=== PATIENT | female | born 1980 | race Caucasian/White ===

== ENCOUNTER 2019-05-14 10:36 | Inpatient (IN) | payer OTHER ==
[2019-05-14] MEDS: LACTATED RINGER'S 1,000 ML IV (12:29)
[2019-05-14] MEDS: TERBUTALINE 1 MG/ML INJ SC ×2 (12:30→14:57)
[2019-05-14 12:52] LABS: ADD MAN DIFF? NO
[2019-05-14 14:13] LABS: ADD UMIC YES; UR ASCORBIC ACID NEGATIVE (NEGATIVE); UR BACTERIA FEW /HPF (NONE SEEN); UR BILIRUBIN (Dip) NEGATIVE (NEGATIVE); UR BLOOD (Dip) NEGATIVE (NEGATIVE); UR CLARITY SLIGHTLY CLOUDY (CLEAR); UR COLOR STRAW (YELLOW); UR GLUCOSE (Dip) NEGATIVE (NEGATIVE); UR KETONES (Dip) TRACE mg/dL (NEGATIVE); UR LEUKOCYTE ESTERASE (Dip) 2+ Leu/ul (NEGATIVE); UR NITRITE (Dip) NEGATIVE (NEGATIVE); UR RBC 1 /HPF (0-5); UR SPECIFIC GRAVITY (Dip) 1.002 (1.003-1.030); UR SQUAMOUS EPITHELIAL CELL FEW /HPF (FEW); UR TOTAL PROTEIN (Dip) NEGATIVE (NEGATIVE); UR UROBILINOGEN (Dip) NEGATIVE (NEGATIVE); UR WBC 23 /HPF (0-5)
[2019-05-14 14:16] LABS: WHITE BLOOD COUNT 9.5 10^3/ul (4.8-10.8)
[2019-05-14 14:16] LABS: BASOPHILS % 0.4 % (0.0-2.0); EOSINOPHILS % 0.2 % (0.0-7.0); HEMATOCRIT 37.5 % (37.0-47.0); HEMOGLOBIN 12.9 g/dl (12.0-16.0); LYMPHOCYTES # 1.8 10^3/ul (0.8-2.9); LYMPHOCYTES % 18.7 % (15.0-51.0); MEAN CORPUSCULAR HEMOGLOBIN 30.5 pg (29.0-33.0); MEAN CORPUSCULAR HGB CONC 34.4 g/dl (32.0-37.0); MEAN CORPUSCULAR VOLUME 88.7 fl (82.0-101.0); MEAN PLATELET VOLUME 10.4 fl (7.4-10.4); MONOCYTE # 0.7 10^3/ul (0.3-0.9); MONOCYTES % 7.1 % (0.0-11.0); NEUTROPHIL # 6.9 10^3/ul (1.6-7.5); NEUTROPHILS % 72.9 % (39.0-77.0); PLATELET COUNT 208 10^3/UL (140-415); RED BLOOD COUNT 4.23 10^6/ul (4.20-5.40); RED CELL DISTRIBUTION WIDTH 13.5 % (11.5-14.5)
[2019-05-14] MEDS ORDERED: MAGNESIUM SULFATE 4 GM/100 ML 100 ML (15:51)
[2019-05-14] MEDS: MAGNESIUM SULFATE 4 GM/100 ML 100 ML IV (16:15)
[2019-05-14] MEDS: BETAMET NA PHOS/AC(6 MG/ML) 2 ML INJ SYG IM (16:36)
[2019-05-14] MEDS: MAGNESIUM SULFATE 20 GM/500 ML 500 ML IV (17:26)
[2019-05-14] MEDS: CEFTRIAXONE 1 GM/50 ML (PMX) 50 ML IVPB (17:31)
[2019-05-14] MEDS ORDERED: SOD CHLORIDE 0.9% 1,000 ML IV (17:47)
[2019-05-14 18:21] LABS: MAGNESIUM 3.5 mg/dl (1.7-2.5)
[2019-05-14] MEDS: AMOXICILLIN/CLAV 500 MG TAB PO (23:44)
[2019-05-15 01:00] LABS: MAGNESIUM 5.3 mg/dl (1.7-2.5)
[2019-05-15] MEDS: MAGNESIUM SULFATE 20 GM/500 ML 500 ML IV ×2 (03:44→13:33)
[2019-05-15] MEDS: LACTATED RINGER'S 1,000 ML IV (04:35)
[2019-05-15] MEDS: AMOXICILLIN/CLAV 500 MG TAB PO ×2 (06:46→14:24)
[2019-05-15 07:20] LABS: MAGNESIUM 5.8 mg/dl (1.7-2.5)
[2019-05-15] MEDS ORDERED: ONDANSETRON 4 MG INJ (11:56)
[2019-05-15] MEDS ORDERED: ONDANSETRON 4 MG INJ IV (12:00)
[2019-05-15] MEDS: ONDANSETRON 4 MG INJ IV (12:07)
[2019-05-15 13:56] LABS: MAGNESIUM 6.3 mg/dl (1.7-2.5)
[2019-05-15] MEDS ORDERED: NIFEdipine 10 MG CAP (16:29)
[2019-05-15] MEDS: BETAMET NA PHOS/AC(6 MG/ML) 2 ML INJ SYG IM (16:38)
[2019-05-15] MEDS: NIFEdipine 10 MG CAP PO (16:49)
== END 2019-05-15 20:11 | disposition home or self-care (01) | DRG 833 ==
LOC: OBT 10:36 → L-D 10:37 → OBT 15:30 → L-D 15:30
DX: O60.03 Preterm labor without delivery, third trimester (principal); Z3A.34 34 weeks gestation of pregnancy; O24.419 Gestational diabetes mellitus in pregnancy, unspecified control
CPT/HCPCS: 36415; 76818; 81001; 83735; 85025; 87086; 96360; 96361; 96372

== ENCOUNTER 2019-06-11 19:31 | Inpatient (IN) | payer OTHER ==
[2019-06-11 20:17] LABS: ADD UMIC YES; UR ASCORBIC ACID NEGATIVE (NEGATIVE); UR BACTERIA FEW /HPF (NONE SEEN); UR BILIRUBIN (Dip) NEGATIVE (NEGATIVE); UR BLOOD (Dip) 3+ mg/dL (NEGATIVE); UR CLARITY SLIGHTLY CLOUDY (CLEAR); UR COLOR STRAW (YELLOW); UR GLUCOSE (Dip) 2+ mg/dL (NEGATIVE); UR KETONES (Dip) NEGATIVE (NEGATIVE); UR LEUKOCYTE ESTERASE (Dip) 2+ Leu/ul (NEGATIVE); UR NITRITE (Dip) NEGATIVE (NEGATIVE); UR RBC 3 /HPF (0-5); UR SPECIFIC GRAVITY (Dip) 1.003 (1.003-1.030); UR SQUAMOUS EPITHELIAL CELL FEW /HPF (FEW); UR TOTAL PROTEIN (Dip) NEGATIVE (NEGATIVE); UR UROBILINOGEN (Dip) NEGATIVE (NEGATIVE); UR WBC 16 /HPF (0-5)
[2019-06-11] MEDS ORDERED: LACTATED RINGER'S 1,000 ML IV (21:35)
[2019-06-11] MEDS ORDERED: MISOPROSTOL 200 MCG TAB PR (22:00)
[2019-06-11] MEDS ORDERED: METHYLERGONOVINE 0.2 MG INJ IM (22:00)
[2019-06-11] MEDS ORDERED: LIDOCAINE 1% (MPF) 30 ML INJ INJ (22:00)
[2019-06-11] MEDS ORDERED: OXYTOCIN 30 UNITS/LR 500 ML IV (22:00)
[2019-06-11] MEDS ORDERED: CARBOPROST 250 MCG INJ IM (22:00)
[2019-06-11] MEDS ORDERED: BUTORPHANOL 2 MG INJ IV (22:00)
[2019-06-11] MEDS: LACTATED RINGER'S 1,000 ML IV (22:03)
[2019-06-11] MEDS: AMPICILLIN 2 GM/NS (PMX) 100 ML IV (22:03)
[2019-06-11 22:18] LABS: ADD MAN DIFF? NO
[2019-06-11 22:19] LABS: BASOPHILS % 0.4 % (0.0-2.0); EOSINOPHILS % 0.5 % (0.0-7.0); HEMATOCRIT 36.8 % (37.0-47.0); HEMOGLOBIN 12.4 g/dl (12.0-16.0); LYMPHOCYTES # 2.1 10^3/ul (0.8-2.9); LYMPHOCYTES % 26.4 % (15.0-51.0); MEAN CORPUSCULAR HEMOGLOBIN 30.5 pg (29.0-33.0); MEAN CORPUSCULAR HGB CONC 33.7 g/dl (32.0-37.0); MEAN CORPUSCULAR VOLUME 90.6 fl (82.0-101.0); MEAN PLATELET VOLUME 9.7 fl (7.4-10.4); MONOCYTE # 0.7 10^3/ul (0.3-0.9); MONOCYTES % 8.1 % (0.0-11.0); NEUTROPHIL # 5.1 10^3/ul (1.6-7.5); NEUTROPHILS % 64.1 % (39.0-77.0); PLATELET COUNT 224 10^3/UL (140-415); RED BLOOD COUNT 4.06 10^6/ul (4.20-5.40); RED CELL DISTRIBUTION WIDTH 13.9 % (11.5-14.5)
[2019-06-11] MEDS ORDERED: MINERAL OIL LIGHT 10 ML VIAL TOP (22:30)
[2019-06-11 22:39] LABS: INR 0.87; PARTIAL THROMBOPLASTIN TIME 26.3 Sec (23.0-35.0); PROTIME 11.9 Sec (11.9-14.9); PT RATIO 0.9
[2019-06-11 23:10] LABS: HEPATITIS B SURFACE ANTIGEN NEGATIVE (NEGATIVE)
[2019-06-12] MEDS: LACTATED RINGER'S 1,000 ML IV ×2 (01:33→10:53)
[2019-06-12] MEDS: AMPICILLIN 1 GM/NS (PMX) 50 ML IV ×5 (02:02→18:23)
[2019-06-12] MEDS: OXYTOCIN 30 UNITS/LR 500 ML IV ×3 (14:24→19:28)
[2019-06-12] MEDS: BUTORPHANOL 2 MG INJ IV (17:50)
[2019-06-12 19:23] LABS: RAPID PLASMA REAGIN NONREACTIVE (NR)
[2019-06-12] MEDS: IBUPROFEN 600 MG TAB PO (19:23)
[2019-06-12] MEDS: KETOROLAC 30 MG INJ IV (19:57)
[2019-06-12] MEDS: ACETAMINOPHEN 500 MG TAB PO (19:58)
[2019-06-12] MEDS ORDERED: CARBOPROST 250 MCG INJ IM (22:30)
[2019-06-12] MEDS ORDERED: METHYLERGONOVINE 0.2 MG INJ IM (22:30)
[2019-06-12] MEDS: MAGNESIUM HYDROXIDE 30ML CUP PO (22:30)
[2019-06-12] MEDS ORDERED: MISOPROSTOL 200 MCG TAB PR (22:30)
[2019-06-12] MEDS ORDERED: HYDROCODONE/APAP (5/325) TAB PO ×2 (22:30)
[2019-06-12] MEDS ORDERED: ZOLPIDEM 5 MG TAB PO (22:30)
[2019-06-12] MEDS ORDERED: OXYTOCIN 30 UNITS/LR 500 ML IV (22:30)
[2019-06-12] MEDS ORDERED: DIBUCAINE 1% 30 GM OINT TOP (22:30)
[2019-06-12] MEDS: BENZOCAINE 20% 56 ML SPRAY TOP (23:59)
[2019-06-13] MEDS: LANOLIN HPA 1 PKT TOP
[2019-06-13] MEDS: WITCH HAZEL/GLYCERIN PAD PR
[2019-06-13] MEDS: LACTATED RINGER'S 1,000 ML IV* ×4 (00:01→22:19)
[2019-06-13] MEDS: IBUPROFEN 600 MG TAB PO ×5 (00:01→23:55)
[2019-06-13 05:40] LABS: ADD MAN DIFF? NO
[2019-06-13 06:46] LABS: WHITE BLOOD COUNT 10.7 10^3/ul (4.8-10.8)
[2019-06-13 06:46] LABS: BASOPHILS % 0.4 % (0.0-2.0); EOSINOPHILS % 0.3 % (0.0-7.0); HEMOGLOBIN 11.5 g/dl (12.0-16.0); LYMPHOCYTES % 18.9 % (15.0-51.0); MEAN CORPUSCULAR HGB CONC 32.9 g/dl (32.0-37.0); MEAN CORPUSCULAR VOLUME 91.4 fl (82.0-101.0); MEAN PLATELET VOLUME 10.2 fl (7.4-10.4); MONOCYTE # 0.9 10^3/ul (0.3-0.9); MONOCYTES % 8.7 % (0.0-11.0); NEUTROPHIL # 7.6 10^3/ul (1.6-7.5); NEUTROPHILS % 71.1 % (39.0-77.0); PLATELET COUNT 201 10^3/UL (140-415); RED BLOOD COUNT 3.83 10^6/ul (4.20-5.40); RED CELL DISTRIBUTION WIDTH 14.1 % (11.5-14.5)
[2019-06-13] MEDS: MAGNESIUM HYDROXIDE 30ML CUP PO ×2 (11:35→21:47)
[2019-06-13] MEDS: SENNA/DOCUSATE NA (8.6MG/50MG) TAB PO ×2 (11:36→21:47)
[2019-06-14] MEDS: IBUPROFEN 600 MG TAB PO ×2 (05:38→12:23)
[2019-06-14] MEDS: LACTATED RINGER'S 1,000 ML IV* (06:19)
[2019-06-14] MEDS: MEASLES,MUMPS,RUBELLA VACCINE INJ SC* (09:00)
[2019-06-14] MEDS: VARICELLA VACCINE LIVE/PF 1,350 UNIT/0.5 ML ML SC* (09:00)
[2019-06-14] MEDS: DIPHTH/TET/ACEL PERTUSS (ADULT) 0.5 ML VIAL IM* (09:00)
[2019-06-14] MEDS: MAGNESIUM HYDROXIDE 30ML CUP PO (09:09)
[2019-06-14] MEDS: SENNA/DOCUSATE NA (8.6MG/50MG) TAB PO (09:09)
== END 2019-06-14 14:38 | disposition home or self-care (01) | DRG 807 ==
LOC: OBT 19:31 → L-D 19:32 → MS1 06-12 20:44 → OBT 21:30 → L-D 21:30
PROC: 10E0XZZ Delivery of Products of Conception, External Approach (ICD-10-PCS; principal; 2019-06-12)
PROC: 0UQMXZZ Repair Vulva, External Approach (ICD-10-PCS; 2019-06-12)
DX: O71.89 Other specified obstetric trauma (principal); Z37.0 Single live birth; Z3A.39 39 weeks gestation of pregnancy
CPT/HCPCS: 76815; 81001; 85025; 85610; 85730; 86592; 86850; 86900; 86901; 87086; 87340; 90715; 90716